=== PATIENT | female | born 1950 | race Caucasian/White ===

== ENCOUNTER 2018-07-28 14:02 | Outpatient (CLI) | payer OTHER | END 2018-07-28 14:03 | disposition home or self-care (01) | LOC: DTY/OP 14:02 | PROVIDERS: ATTEND Specialist | DX: Z01.818 Encounter for other preprocedural examination (principal); E66.01 Morbid (severe) obesity due to excess calories | CPT/HCPCS: 97802 ==

== ENCOUNTER 2018-08-09 13:32 | Day surgery (SDC) | payer MEDICARE ==
[2018-08-08 13:35] VITALS: BMI 57.8
--- NOTE | 2018-08-09 20:33 | OP ---
DATE OF PROCEDURE: 08/09/2018 PROCEDURE PERFORMED: Esophagogastroduodenoscopy with biopsy. PREOPERATIVE DIAGNOSES: Dyspepsia, epigastric pain, and preoperative evaluation. DESCRIPTION OF PROCEDURE: Informed consent was obtained from the patient. She was sedated with total intravenous anesthesia. The bite block was placed, and the endoscope was advanced easily to the second portion of the duodenum, and retroflexion was performed in the stomach. The esophagus was normal. The GE junction was normal. The stomach had erythematous patchy moderate gastritis in the antrum. Biopsies were obtained to rule out H. pylori. Retroflexed views in the stomach were normal. The duodenum had erosive duodenitis with multiple submillimeter erosions in the first portion of the duodenum. Second portion of the duodenum was unremarkable. Biopsies were obtained from the second portion of the duodenum to rule out celiac disease. IMPRESSION: 1. Erythematous patchy gastritis in the antrum. Biopsies obtained to rule out Helicobacter pylori. 2. Erosive duodenitis. Biopsies obtained to rule out celiac disease. RECOMMENDATIONS: 1. Await histopathology. 2. Follow up in GI clinic. 3. Start omeprazole 20 mg daily for the next month, this can be taken over the counter. Job ID: [id number]
[2018-08-09] MEDS ORDERED: PROPOFOL 200 MG/20 ML VIAL ONE (20:56)
== END 2018-08-09 19:00 | disposition home or self-care (01) ==
LOC: SDC 13:32
PROVIDERS: ATTEND Internal Medicine Gastroenterology
PROC: 0DB98ZX Excision of Duodenum, Via Natural or Artificial Opening Endoscopic, Diagnostic (ICD-10-PCS; principal; 2018-08-09)
PROC: 0DB68ZX Excision of Stomach, Via Natural or Artificial Opening Endoscopic, Diagnostic (ICD-10-PCS; 2018-08-09)
DX: K29.70 Gastritis, unspecified, without bleeding (principal); K29.80 Duodenitis without bleeding; K26.9 Duodenal ulcer, unspecified as acute or chronic, without hemorrhage or perforation; F41.9 Anxiety disorder, unspecified; M19.90 Unspecified osteoarthritis, unspecified site; E78.00 Pure hypercholesterolemia, unspecified; I10 Essential (primary) hypertension; K58.9 Irritable bowel syndrome, unspecified; G47.30 Sleep apnea, unspecified; Z79.899 Other long term (current) drug therapy; Z88.0 Allergy status to penicillin; Z88.1 Allergy status to other antibiotic agents; Z88.2 Allergy status to sulfonamides; Z88.8 Allergy status to other drugs, medicaments and biological substances
CPT/HCPCS: 88305; 88312; J2704

== ENCOUNTER 2018-12-08 00:15 | Outpatient (CLI) | payer MEDICARE ==
[2018-12-08 17:00] LABS: #Lymphocytes 1.2 thou/uL (1.20-3.40); #Monocytes 0.2 thou/uL (0.11-0.59); #Neutrophils 9.9 thou/uL (1.40-6.50); %Basophils 0.1 % (0.0-1.0); %Eosinophils 0.2 % (0.0-10.0); %Lymphocytes 10.7 % (21.0-51.0); %Monocytes 1.8 % (0.0-10.0); %Neutrophils 87.3 % (42.0-75.0); Hemoglobin 13.2 g/dL (12.0-16.0); Mean Corpuscular HGB CONC 32.8 g/dL (32.0-36.0); Mean Corpuscular Volume 85.3 fL (78.0-98.0); Mean Platelet Volume 8.6 fL (7.4-10.4); Platelet Count 347 thou/uL (130-400); RBC Distribution Width 13.2 % (11.5-14.5); Red Blood Cell (RBC) Count 4.72 mill/uL (4.20-5.40); White Blood Cell (WBC) Count 11.4 thou/uL (4.8-10.8)
[2018-12-08 17:15] LABS: Hemoglobin A1c 4.9 % (4.0-6.0)
[2018-12-08 17:23] LABS: ALT (SGPT) 15 U/L (8-55); AST (SGOT) 18 U/L (5-34); Albumin 4.1 g/dL (3.4-4.8); Alkaline Phosphatase 68 U/L (40-150); Anion Gap 13 mmol/L (10-20); BUN (Urea Nitrogen) 24 mg/dL (9.8-20.1); Bilirubin, Total 0.3 mg/dL (0.2-1.2); Calc. Creatinine Clearance 0 mL/min (70-130); Calcium 9.6 mg/dL (7.8-10.44); Carbon Dioxide 26 mmol/L (23-31); Chloride 105 mmol/L (98-107); Estimated GFR-MDRD 64; Globulin 3.7 g/dL (2.4-3.5); Glucose 118 mg/dL (80-115); Potassium 4.1 mmol/L (3.5-5.1); Protein, Total 7.8 g/dL (6.0-8.3); Sodium 140 mmol/L (136-145)
== END 2018-12-08 00:16 | disposition home or self-care (01) ==
LOC: LABBT 00:15
PROVIDERS: ATTEND Specialist
DX: Z01.812 Encounter for preprocedural laboratory examination (principal); E66.01 Morbid (severe) obesity due to excess calories; K21.9 Gastro-esophageal reflux disease without esophagitis; E78.5 Hyperlipidemia, unspecified; Z68.43 Body mass index [BMI] 50.0-59.9, adult
CPT/HCPCS: 80053; 83036; 85025

== ENCOUNTER 2018-12-08 16:00 | Inpatient (IN) | payer MEDICARE ==
--- NOTE | 2018-12-08 14:41 | HP ---
HISTORY OF PRESENT ILLNESS: Dawn Doshi is a 68-year-old female patient, who I initially saw in June 2018. She was interested in a gastric bypass. She had comorbidities of morbid obesity, hypertension, GERD, dyslipidemia. She reports her GERD occurs occasionally only when eating heavy meals late at night, but it does not bother her daily. She takes PPIs intermittently. When I saw her in June, she was 302 pounds, 5 feet tall, BMI of 59. Today, she is 274 pounds, 53 BMI, with successful losing of more than 25 pounds. She visited dietitian and discussed with her dietary changes related to a gastric sleeve and visited with a psychologist who believes she is an excellent candidate for bariatric surgery. She has had cardiac clearance by Dr. Wise, and her stress test was normal. Today, she has lost 15% of excess body weight, lost 28 pounds, and is now ready to proceed with a laparoscopic sleeve gastrectomy. She initially was considering the gastric bypass, but after further discussion and consideration, she would like to proceed with a laparoscopic sleeve gastrectomy. Comorbidities as listed above includes hypertension. MEDICATIONS: 1. Amlodipine 10 mg a day. 2. Naproxen as needed. 3. CoQ10. 4. Lisinopril 40 mg a day. 5. Sertraline 100 mg a day. 6. Multivitamins 500 mg a day. 7. Furosemide 40 mg a day. SOCIAL HISTORY: Tobacco, none. Alcohol, none. She quit smoking in 1969. PAST SURGICAL HISTORY: Cholecystectomy, anal fissure; hammertoe surgery, carpal tunnel release; right total hip replacement in September 2014; bilateral carpal tunnels in 1989; bunion/hammertoe surgery in the past; urethral sphincterotomy, in . FAMILY HISTORY: Noncontributory except for mother had heart disease and hypertension. PAST MEDICAL HISTORY: , bladder prolapse, mixed incontinence, asthma, hypertension, intermittent minimal GERD, history of UTIs, history of lumbar radiculopathy and elevated cholesterol. The patient is followed by Dr. Munoz. REVIEW OF SYSTEMS: Ten-point noncontributory otherwise. PHYSICAL EXAMINATION: VITAL SIGNS: Height 5 feet, 274 pounds, 53 BMI. (Initially, when she presented in June 2018, she was 302 pounds, 59 BMI). Blood pressure 130/56, heart rate 74, temperature 98.4 degrees. HEAD, EYES, EARS, NOSE, THROAT: Unremarkable. LUNGS: Clear to auscultation. CARDIAC: Rhythm without murmur or gallop. ABDOMEN: Soft and nontender, obese. EXTREMITIES: Unremarkable. No ankle edema. No lymphadenopathy in the neck, axilla, or groin. NEUROLOGIC: Intact. No focal deficit. ASSESSMENT AND PLAN: Morbid obesity with preoperative weight loss of 28 pounds, 15% excess body weight, following preoperative diet, has been cleared by psychologist and lens cleaner, and we will proceed with laparoscopic sleeve gastrectomy. She understands the risks of infection, bleeding, visceral injury, and then commits to lifelong followup and compliance with postoperative vitamins and protein supplements and exercise to improve her results. Job ID: [id number]
--- NOTE | 2018-12-09 07:35 | HP ---
HISTORY OF PRESENT ILLNESS: Dawn Doshi is a 68-year-old female, initially seen in June 2018. She desires bariatric surgery. She initially is interested in sleeve gastric bypass consideration, she desires a sleeve gastrectomy. She has a long history of obesity and tried numerous diets without significant results. Weight on initial presentation 302 pounds, BMI 59; currently 271 pounds, BMI 52. The patient has met with a psychologist, had a cardiac workup cleared from a cardiac standpoint for surgery. Plan is for laparoscopic sleeve gastrectomy. MEDICATIONS: 1. Amlodipine 10 mg a day. 2. Naproxen daily. 3. Lisinopril 40 mg at bedtime. 4. Sertraline daily. 5. Fluticasone spray as directed. 6. Multivitamins a day. 7. Furosemide 40 mg a day. PAST MEDICAL HISTORY: DJD, bladder prolapse, mixed incontinence, asthma, hypertension, minimal GERD, history of renal cyst. History UTI, lumbar radiculopathy, obesity, high cholesterol, bad knees, ambulating with a walker. PAST SURGICAL HISTORY: Laparoscopic cholecystectomy, sphincterotomy for anal fissure, hammertoe surgery, toenail surgery, carpal tunnel release, incision and drainage of right hip in 2014, bilateral carpal tunnel in 1989, bunion/hammertoe surgery in the past. SOCIAL HISTORY: Tobacco, none since 1970, half a pack a day prior to cessation. Alcohol, none. ASSESSMENT AND PLAN: Morbid obesity, presenting with 302 pounds, 59 BMI, now 271 pounds, 52 BMI, has cardiac clearance with Dr. Wise, seen her psychologist, met with our dietitian, and we will proceed laparoscopic sleeve gastrectomy. She understands risks and benefits and consents. She has comorbidities of hypertension, arthritis, arthralgias. Job ID: [id number]
[2018-12-14] MEDS ORDERED: cefOXitin 2 GM VIAL ONE (06:17)
[2018-12-14] MEDS ORDERED: Heparin 5,000 UNITS/ML VIAL ONE (06:17)
[2018-12-14] MEDS ORDERED: Sodium Chloride 0.9% 100 ML ONE (06:18)
[2018-12-14] MEDS ORDERED: Ketorolac Tromethamine 30 MG/ML VIAL ONE (06:18)
[2018-12-14] MEDS ORDERED: Scopolamine 1.5 mg/72 hour Patch ONE (06:18)
[2018-12-14] MEDS ORDERED: Bupivacaine/Epinephrine 0.25% 30 ML VIAL ONE (06:36)
[2018-12-14] MEDS ORDERED: Fentanyl 100 MCG/2 ML VIAL ONE ×2 (07:04→09:25)
[2018-12-14] MEDS ORDERED: Dexmedetomidine 200 MCG/2 ML VIAL ONE (07:05)
[2018-12-14] MEDS ORDERED: Ondansetron PF 4 MG/2 ML Vial IVP PRN (07:46)
[2018-12-14] MEDS ORDERED: Hydrocodone-Acetamin 15 ML UDCUP PO PRN (07:46)
[2018-12-14] MEDS ORDERED: diphenhydrAMINE 50 MG/ML VIAL IVP PRN (07:46)
[2018-12-14] MEDS ORDERED: Dextrose 5% in Water 1,000 ML IV PRN (07:46)
[2018-12-14] MEDS ORDERED: Dextrose 50% Abboject 50 ML SYRINGE SLOW IVP PRN (07:46)
[2018-12-14] MEDS ORDERED: hydrALAZINE 20 MG/ML VIAL SLOW IVP PRN (07:46)
[2018-12-14] MEDS ORDERED: Morphine 4 MG/ML VIAL SLOW IVP PRN (07:46)
[2018-12-14] MEDS ORDERED: traMADol HCl 50 MG TAB PO PRN ×4 (07:51→10:16)
[2018-12-14] MEDS ORDERED: Nystatin Cream 15 GM TUBE TOP PRN (08:00)
[2018-12-14] MEDS ORDERED: SUGAMMADEX SODIUM 200 MG/2 ML VIAL ONE (09:07)
[2018-12-14] MEDS ORDERED: Promethazine HCl 25 MG/ML VIAL ONE ×2 (09:16→12:32)
[2018-12-14] MEDS ORDERED: Ondansetron HCl/PF 4 MG/2 ML Vial IVP PRN (09:43)
[2018-12-14] MEDS ORDERED: Promethazine HCl 25 MG/ML VIAL SLOW IVP PRN (09:43)
[2018-12-14] MEDS ORDERED: Promethazine HCl 25 MG/ML VIAL IM PRN (09:43)
[2018-12-14] MEDS ORDERED: Morphine Sulfate 2 MG/ML SYRINGE SLOW IVP PRN (09:43)
[2018-12-14] MEDS ORDERED: Morphine 4 MG/ML VIAL ONE (09:55)
[2018-12-14] MEDS ORDERED: Morphine 2 MG/ML SYRINGE SLOW IVP PRN (10:02)
[2018-12-14] MEDS ORDERED: Fluticasone Propionate Nasal Spray 16 gm Bottle NASAL PRN (10:15)
[2018-12-14] MEDS ORDERED: Morphine 2 MG/ML SYRINGE ONE ×2 (10:26→10:56)
[2018-12-14] MEDS: Lactated Ringer's 1,000 ML IV SCH ×2 (12:54→18:22)
[2018-12-14] MEDS: Amlodipine 10 MG TAB PO SCH (12:54)
[2018-12-14] MEDS: Acetaminophen 1,000 MG in Premix Bag 1 BAG IVPB SCH ×3 (12:54→20:03)
[2018-12-14] MEDS: Furosemide 40 MG TAB PO SCH (12:55)
--- NOTE | 2018-12-14 13:23 | OP ---
DATE OF PROCEDURE: 12/14/2018 PREOPERATIVE DIAGNOSES: Morbid obesity, presenting with 302 pounds, 59 BMI, losing 271 pounds, 52 BMI preoperatively with comorbidities of hypertension, degenerative joint disease, having cardiac clearance preoperatively. POSTOPERATIVE DIAGNOSES: Morbid obesity, presenting with 302 pounds, 59 BMI, losing 271 pounds, 52 BMI preoperatively with comorbidities of hypertension, degenerative joint disease, having cardiac clearance preoperatively. PROCEDURE PERFORMED: Laparoscopic sleeve gastrectomy over a 36-Turkish bougie, staple line within 4 cm of the pylorus, completion of EGD, no staple line reinforcement used. ANESTHESIA: General anesthesia, local of 0.25% Marcaine with epinephrine 60 mL. ESTIMATED BLOOD LOSS: 25 mL. DESCRIPTION OF PROCEDURE: The patient was taken to the operating room, where under general anesthesia in the supine position, abdomen was prepared with ChloraPrep and draped in routine fashion. Local anesthetic was infiltrated into the skin and subcutaneous tissue about each port site. Supraumbilical midline incision was made and pneumoperitoneum to 15 mmHg was obtained with a Veress needle, replacing with a 5 port, video laparoscope inserted. Bilateral far lateral incision was made and 5 port was placed. Bilateral midclavicular upper abdominal incision was made and 15 port was placed on the left and 12 port on the right, and subxiphoid incision was made. A Karen liver retractor was inserted reflecting the left lobe of the liver. The liver was malleable, slightly fatty, but easily manipulated. Laparoscopic sleeve gastrectomy was undertaken by initially dividing the gastrocolic ligament adjacent to the greater curvature with the ligature, double burning along the greater curvature up toward the angle of His, dissecting it free, noting absence of hiatal hernia. After this was adequately dissected, dissection was carried out distally within 3 to 4 cm of the pylorus. A 36-Turkish bougie placed under laparoscopic visualization, placed orally by Anesthesia. Once it was in proper position toward the pylorus, initial fire of green load stapler was performed taking care not to overly tighten the staple line against the bougie and initial two fires. The second fire utilized gold load and then subsequent blue loads. Care was taken to avoid over tightening the sleeve gastrectomy near the incisura. Serial fires performed, completing the sleeve gastrectomy, moving the stomach from the 15 mm port placed in a [id number] suture of 0 Vicryl, GraNee needle, transabdominal fixation and closure of abdominal wall. The staple line was inspected and clips placed as necessary as the bougie removed. I then presented to the head of the table and performed the upper endoscopy, noting normal esophagus, sleeve gastrectomy visualizing the pylorus, passing the scope easily without evidence of leak visualized laparoscopically. Scope gradually withdrawn, decompressing the sleeve gastrectomy. Good hemostasis noted as I returned to the operative field with new gown and gloves and pneumoperitoneum reduced. Good hemostasis had been noted. Clips applied to the staple line were needed for hemostasis. Pneumoperitoneum evacuated. All skin incisions closed with interrupted subdermal 4-0 Monocryl and Dermaglue applied. The patient tolerated the procedure well without complications. Job ID: [id number]
[2018-12-14] MEDS: Ketorolac Tromethamine 30 MG/ML VIAL IVP SCH ×3 (13:51→23:07)
[2018-12-14] MEDS: Pantoprazole 40 MG VIAL IVP SCH (13:57)
[2018-12-14] MEDS ORDERED: PROPOFOL 200 MG/20 ML VIAL ONE (15:07)
[2018-12-14] MEDS ORDERED: Rocuronium Bromide 10 MG/ML (10ML VIAL) ONE (15:07)
[2018-12-14] MEDS ORDERED: Glycopyrrolate 0.2 MG/ML 5 ML SYRINGE ONE ×2 (15:07)
[2018-12-14] MEDS ORDERED: PHENYLEPHRINE-NS 100 MCG/ML 10 ML SYRINGE ONE (15:07)
[2018-12-14] MEDS ORDERED: Ondansetron PF 4 MG/2 ML Vial ONE (15:07)
[2018-12-14] MEDS ORDERED: Lidocaine 1% PF 5 ML VIAL ONE (15:07)
[2018-12-14] MEDS ORDERED: Dexamethasone 20 MG/5 ML VIAL ONE (15:07)
[2018-12-14] MEDS ORDERED: ePHEDrine 50 MG/ML VIAL ONE (15:07)
[2018-12-14] MEDS ORDERED: Metoclopramide HCl 10 MG/2 ML VIAL ONE (15:07)
[2018-12-14 16:37] VITALS: BMI 53.1
[2018-12-14] MEDS ORDERED: Enoxaparin Sodium 40 MG/0.4 ML SYRINGE SC SCH (21:00)
[2018-12-15] MEDS: Lactated Ringer's 1,000 ML IV SCH ×2 (00:09→09:07)
[2018-12-15] MEDS: Acetaminophen 1,000 MG in Premix Bag 1 BAG IVPB SCH (01:18)
[2018-12-15 04:41] LABS: #Lymphocytes 1.5 thou/uL (1.20-3.40); #Monocytes 0.6 thou/uL (0.11-0.59); #Neutrophils 9.1 thou/uL (1.40-6.50); %Basophils 0.1 % (0.0-1.0); %Eosinophils 0.1 % (0.0-10.0); %Lymphocytes 13.2 % (21.0-51.0); %Monocytes 5.7 % (0.0-10.0); Hemoglobin 11.8 g/dL (12.0-16.0); Mean Corpuscular HGB CONC 32.5 g/dL (32.0-36.0); Mean Corpuscular Hemoglobin 28.3 pg (27.0-31.0); Mean Corpuscular Volume 87.3 fL (78.0-98.0); Mean Platelet Volume 8.2 fL (7.4-10.4); Platelet Count 297 thou/uL (130-400); RBC Distribution Width 13.4 % (11.5-14.5); Red Blood Cell (RBC) Count 4.15 mill/uL (4.20-5.40); White Blood Cell (WBC) Count 11.3 thou/uL (4.8-10.8)
[2018-12-15 04:58] LABS: Anion Gap 13 mmol/L (10-20); BUN (Urea Nitrogen) 7 mg/dL (9.8-20.1); Calc. Creatinine Clearance 132 mL/min (70-130); Calcium 9.2 mg/dL (7.8-10.44); Carbon Dioxide 26 mmol/L (23-31); Chloride 105 mmol/L (98-107); Estimated GFR-MDRD 74; Glucose 111 mg/dL (80-115); Potassium 4.4 mmol/L (3.5-5.1); Sodium 140 mmol/L (136-145)
[2018-12-15] MEDS: Ketorolac Tromethamine 30 MG/ML VIAL IVP SCH ×2 (05:52→13:11)
[2018-12-15] MEDS ORDERED: Acetaminophen 500 MG TAB PO PRN (07:51)
[2018-12-15] MEDS ORDERED: Hydrocodone-Acetamin 15 ML UDCUP PO PRN (08:00)
[2018-12-15] MEDS: Furosemide 40 MG TAB PO SCH (08:44)
[2018-12-15] MEDS: Amlodipine 10 MG TAB PO SCH (08:45)
[2018-12-15] MEDS: Pantoprazole 40 MG VIAL IVP SCH (08:49)
[2018-12-15 11:56] VITALS: TEMP 98.8
--- NOTE | 2018-12-15 13:52 | PRG ---
DATE OF SERVICE: 12/15/2018 SUBJECTIVE: Dawn Doshi is doing well today. She is status post laparoscopic sleeve gastrectomy yesterday. OBJECTIVE: VITAL SIGNS: 98.8 degrees, 73, and 122/62. GENERAL: She has not required any pain medication. She is tolerating her diet. LUNGS: Clear to auscultation. CARDIAC: Regular rate and rhythm without murmur or gallop. ABDOMEN: Soft and nontender. Surgical wounds look good. Good bowel sounds. LABORATORY DATA: This morning, her hemoglobin is 11.8. Basic metabolic profile is normal. She is ambulating the hallway. She has saline lock last night after tolerating liquids postop same day. ASSESSMENT AND PLAN: Doing well after sleeve gastrectomy. Bariatric diet progression as instructed. Discharge home today. Follow up in my office per appointment in 1 to 2 weeks. Job ID: [id number]
[2018-12-15 15:28] VITALS: BP 148/80
[2018-12-15] MEDS ORDERED: Lisinopril 20 MG TAB PO SCH (21:00)
--- NOTE | 2018-12-16 01:13 | DIS ---
DATE OF ADMISSION: 12/14/2018 DATE OF DISCHARGE: 12/15/2018 DISCHARGE DIAGNOSIS: Morbid obesity, 4 feet 11 inches, 271 pounds. On initial presentation, 302 pounds, BMI 59. Preoperative visit, 271 pounds, 52 body mass index with intentional weight loss efforts, seen her psychologist, evaluated her, she is an appropriate candidate. She underwent cardiac evaluation, which was unremarkable and now presents for laparoscopic sleeve gastrectomy. She has comorbidities of degenerative joint disease, hypertension, depression. PREOPERATIVE MEDICATIONS: 1. Amlodipine 10 a day. 2. Naproxen as needed. 3. Lisinopril 40 mg at bedtime. 4. Sertraline daily. 5. Furosemide 40 mg a day. PAST MEDICAL HISTORY: Bladder prolapse; DJD; mixed incontinence; asthma; hypertension; occasional GERD, not significant; history of UTIs; lumbar radiculopathy; ambulatory with a walker. The patient had a prior cholecystectomy, has had a prior sphincterotomy for anal fissure and a prior right hip replacement in 2014. HOSPITAL COURSE: The patient initially presented to me, interested in gastric bypass, but after further discussion, desired a gastric sleeve. She is admitted after preoperative assessment for laparoscopic sleeve gastrectomy. Postoperatively convalescing and tolerating her bariatric liquid diet, not requesting any pain medication. She was given Ofirmev IV and Toradol p.r.n. and did not require any other analgesics. Did not require a BUSINESS INFO CONSULTANT. She is discharged home at this time to resume her home medications and in addition, take Tylenol as needed for pain 1000 mg p.o. q.i.d. as needed and Ultram. Follow up in 1 to 2 weeks. Diet and activity as tolerated. No lifting restrictions. Diet; bariatric clears, advance as instructed. Job ID: [id number]
== END 2018-12-15 15:40 | disposition home or self-care (01) | DRG 621 ==
LOC: SURG A 12-14 05:54 → SURG B 12-14 12:22 → EDSTATUS 12-14 16:00
PROVIDERS: ADMIT Specialist; ATTEND Specialist
PROC: 0DB64Z3 Excision of Stomach, Percutaneous Endoscopic Approach, Vertical (ICD-10-PCS; principal; 2018-12-14)
DX: E66.01 Morbid (severe) obesity due to excess calories (principal); I10 Essential (primary) hypertension; K21.9 Gastro-esophageal reflux disease without esophagitis; Z68.43 Body mass index [BMI] 50.0-59.9, adult; J45.909 Unspecified asthma, uncomplicated; E78.00 Pure hypercholesterolemia, unspecified; M19.90 Unspecified osteoarthritis, unspecified site; M54.10 Radiculopathy, site unspecified; Z87.891 Personal history of nicotine dependence; Z79.899 Other long term (current) drug therapy; Z87.440 Personal history of urinary (tract) infections; Z90.49 Acquired absence of other specified parts of digestive tract; Z88.0 Allergy status to penicillin; Z88.2 Allergy status to sulfonamides; Z88.1 Allergy status to other antibiotic agents
CPT/HCPCS: 36415; 80048; 85025; 88307; 88312; C9113; J0131; J0694; J1100; J1644; J1650; J1885; J2001; J2270; J2405; J2550; J2704; J2765; J3010; J3490

== ENCOUNTER 2020-08-04 03:43 | Inpatient (IN) | payer MEDICARE, OTHER ==
[2020-08-04] MEDS ORDERED: Sodium Chloride 0.9% 1,000 ML IV SCH ×3 (04:30→11:45)
--- NOTE | 2020-08-04 05:05 | PDOC.BPN ---
- Brief Progress Note [id number] dictated
--- NOTE | 2020-08-04 05:43 | HP ---
CHIEF COMPLAINT: Abdominal pain, nausea and vomiting. HISTORY OF PRESENT ILLNESS: Ms. Doshi is a 70-year-old female with past medical history of hypertension, chronic back pain, osteoarthritis, hyperlipidemia, among others, is being transferred from [facility] after she presented there earlier with abdominal pain associated with persistent nausea and vomiting. The patient has been complaining of left flank pain. She had constant vomiting since 04:00 p.m. No diarrhea. She also reports increased frequency of urination and mild dysuria. Denies cough, shortness of breath, or chest pain. Workup in the emergency room including imaging studies, CT chest, abdomen, and pelvis, the patient was found to have 6 mm proximal ureter stone at the ureteropelvic junction causing hydronephrosis and quite a bit of stranding around the kidney. The patient had a fever of 103. Urinalysis is unremarkable except for RBCs. Septic workup done in the ED. Started on IV antibiotics. Requested to transfer the patient to our medical facility for further management. PAST MEDICAL HISTORY: As mentioned above in history of present illness. PAST SURGICAL HISTORY: Reviewed and not pertinent. SOCIAL HISTORY: Patient has no smoking history. Drinks socially. FAMILY HISTORY: Reviewed and noncontributory. ALLERGIES: BUSPAR, CIPRO, DOXYCYCLINE, PENICILLINS, PREGABALIN, SULFA. HOME MEDICATIONS: See home medication reconciliation form for updated medications. REVIEW OF SYSTEMS: Review of 14 systems negative except what is mentioned in history of present illness. PHYSICAL EXAMINATION: GENERAL: The patient is awake, alert, in moderate distress. VITAL SIGNS: Blood pressure 130/80, respiratory rate is 20, heart rate is 118, temperature was as high as 103.8, oxygen saturation is 96%. HEAD AND NECK: Normocephalic, atraumatic. Neck is supple. No JVD. CHEST: Fair bilateral air entry. HEART: S1, S2. Regular. Tachycardic. ABDOMEN: Soft with flank tenderness. Bowel sounds present. NEUROLOGIC: Awake, alert, moving extremities. PSYCH: Unable to assess. EXTREMITIES: No clubbing or cyanosis. LABORATORY DATA: WBC 17.2, hemoglobin 13.4, platelets 392. Sodium 140, potassium 3.7, glucose 140, BUN is 13, creatinine 0.77. IMAGING STUDIES: As mentioned above in history of present illness. ASSESSMENT: 1. Sepsis. 2. Left ureterolithiasis with left hydronephrosis. 3. Hypertension. 4. Hyperlipidemia. 5. Chronic back pain. PLAN: 1. Admit. 2. Septic workup was done in the ED. 3. IV antibiotics. 4. IV fluids. 5. Urology is being consulted by ED physician for evaluation and further management. 6. Reconcile home medications. 7. DVT prophylaxis as appropriate. 8. Expected length of stay, 2 midnights or more. Job ID: [id number]
[2020-08-04 05:56] LABS: SARS-CoV-2 NAA Rapid Test Not Detected (NotDetected)
[2020-08-04 06:53] VITALS: BMI 37.0
[2020-08-04] MEDS: Famotidine/PF 20 mg/2ml Vial SLOW IVP SCH ×2 (08:54→21:01)
[2020-08-04] MEDS ORDERED: Vancomycin 1 GM in Premix Bag 1 BAG IVPB SCH (09:00)
[2020-08-04 10:05] LABS: Hemoglobin 11.4 g/dL (12.0-16.0); Mean Corpuscular HGB CONC 33.2 g/dL (32.0-36.0); Mean Corpuscular Hemoglobin 29.3 pg (27.0-31.0); Mean Corpuscular Volume 88.2 fL (78.0-98.0); Mean Platelet Volume 8.1 fL (7.4-10.4); Platelet Count 241 thou/uL (130-400); RBC Distribution Width 12.4 % (11.5-14.5); Red Blood Cell (RBC) Count 3.88 mill/uL (4.20-5.40); White Blood Cell (WBC) Count 19.9 thou/uL (4.8-10.8)
[2020-08-04 10:13] LABS: Anion Gap 15 mmol/L (10-20); BUN (Urea Nitrogen) 15 mg/dL (9.8-20.1); Calc. Creatinine Clearance 63 mL/min (70-130); Calcium 7.4 mg/dL (7.8-10.44); Carbon Dioxide 20 mmol/L (23-31); Chloride 107 mmol/L (98-107); Glucose 155 mg/dL (83-110); Sodium 139 mmol/L (136-145)
[2020-08-04 10:22] LABS: Band 23 % (5-11); Lymphocytes 1 % (21-51); MDiff Complete? YES; Metamyelocyte 2 % (0-0); Monocytes 2 % (0-10); Neutrophil 72 % (42-75); Platelet Morphology Comment Appears Adequate
[2020-08-04 10:23] LABS: Potassium 2.9 mmol/L (3.5-5.1)
[2020-08-04] MEDS: Vancomycin HCl 1.25 GM in Sodium Chloride 0.9% 250 ML 250 ML IVPB SCH (10:42)
[2020-08-04] MEDS: Sodium Chloride 0.9% 1,000 ML IV SCH ×3 (10:47→22:27)
--- NOTE | 2020-08-04 10:55 | RAD ---
PORTABLE CHEST 1 VIEW: Date: 08/04/2020 Time: 0946 hours HISTORY: Hypoxia. FINDINGS: The heart size is borderline. The lungs are expanded without lobar consolidation, pneumothoraces, fra nk pulmonary edema, or pleural effusions. There are degenerative changes in the acromioclavicular zayra nts. IMPRESSION: No acute process. POS: OFF
[2020-08-04] MEDS ORDERED: PROPOFOL 200 MG/20 ML VIAL ONE (11:37)
[2020-08-04] MEDS ORDERED: Ondansetron PF 4 MG/2 ML Vial ONE (11:37)
[2020-08-04] MEDS ORDERED: Lidocaine 1% PF 5 ML VIAL ONE (11:37)
[2020-08-04] MEDS ORDERED: PHENYLEPHRINE-NS 100 MCG/ML 10 ML SYRINGE ONE (11:37)
[2020-08-04] MEDS ORDERED: Succinylcholine 200 MG/10 ml SYRINGE FS ONE (11:37)
[2020-08-04] MEDS ORDERED: diphenhydrAMINE 50 MG/ML VIAL ONE (11:37)
[2020-08-04] MEDS ORDERED: ePHEDrine 50 MG/ML VIAL ONE (11:37)
[2020-08-04] MEDS: Potassium Chloride 20 MEQ TAB PO SCH ×3 (12:13→21:03)
[2020-08-04] MEDS ORDERED: Cefepime 2 GM in Sodium Chloride 0.9% 100 ML IVPB SCH (13:00)
[2020-08-04] MEDS: MEROPENEM 1 GM/50 ML 1 GM in Premix Bag 1 BAG IVPB SCH ×2 (13:46→22:25)
--- NOTE | 2020-08-04 14:27 | PDOC.BPN ---
- Brief Progress Note Encounter Date: 08/04/20 The patient denies any significant pain today. She appears to be heading towards worsening sepsis. Her blood pressure has been trending down. White count is 19,000. I have changed her antibiotics to vancomycin and meropenem. We will administer a bolus of NS. The patient's BNP is elevated, however, her chest x-ray is clear. We will monitor her response to the current management. Transfer to [facility].
[2020-08-04] MEDS ORDERED: Iothalamate Meglumine 60% 50 ML VIAL FS ONE (17:52)
[2020-08-04] MEDS ORDERED: Fentanyl 100 MCG/2 ML VIAL ONE ×2 (17:58→19:25)
--- NOTE | 2020-08-04 18:09 | CON ---
DATE OF CONSULTATION: 08/04/2020 CHIEF COMPLAINT: Left-sided flank pain with associated nausea and vomiting. HISTORY OF PRESENT ILLNESS: Ms. Dawn Doshi is a very pleasant 70-year-old white female whom I am acquainted with for past history of recurrent urinary tract infection. The patient presents now with a slightly different problem. She has recently undergone bariatric surgery and presents to the hospital complaining of nausea and vomiting. The patient underwent CT scanning of the abdomen and pelvis on 08/03/2020 and had finding of a left ureteropelvic junction calculus. The patient has symptomatic left-sided flank pain which radiates to the left anterior abdomen. A CT shows proximal hydronephrosis and stranding about the kidney as well as massive dilation of the collecting system. Based on the patient's presentation with marked elevated white count, she is being observed in the intensive care unit for resuscitation. [place] [id number]. The patient, however, on antibiotic therapy is currently afebrile. ALLERGIES: TO SULFA, BUSPIRONE, AND PENICILLINS. CURRENT OUTPATIENT MEDICATION LIST: Includes Pepcid on a p.r.n. basis. PAST MEDICAL HISTORY: 1. Morbid obesity. 2. Recurrent urinary tract infection. 3. Hypertension, currently on lisinopril. REVIEW OF SYSTEMS: HEAD, EARS, EYES, NOSE, AND THROAT: Negative. GENERAL AND METABOLIC: The patient does not report fever at home. She does report severe flank pain symptoms. CARDIAC: Negative except for hypertension. PULMONARY: No complaints of cough for cold. No coronavirus or flu symptoms. GASTROINTESTINAL: Nausea and vomiting as well as abdominal pain confined to the left side. GENITOURINARY: No complaints of recent urinary tract infection. Positive for left-sided flank pain symptoms. MUSCULOSKELETAL: No current complaints. PHYSICAL EXAMINATION: VITAL SIGNS: Temperature is 98.6, pulse is 83, blood pressure is 98/52. HEAD, EYES, EARS, NOSE, AND THROAT: Extraocular movements are intact. Sclerae anicteric. Oropharynx is clear. NECK: Supple. LUNGS: Clear to auscultation bilaterally. CARDIAC: Regular rate and rhythm. ABDOMEN: Soft and nontender anteriorly. The patient reports left-sided flank pain which is present on percussion. Abdomen is soft, obese, and nontender. SKIN: There are multiple skin lesions associated with patient's recent history of shingles on a right-sided T8 level distribution dermatomal pattern. There are laparoscopy scars associated with the patient's recent gastric sleeve operation which was performed about one year ago. PELVIC: Deferred to the operative suite. RADIOLOGIC STUDIES: CT scan of the abdomen and pelvis was performed on 08/03/2020, and the patient has described a left-sided UPJ stone measuring 6 mm in diameter. There is proximal hydronephrosis and stranding about the patient's left kidney. H[place]ologic [place] [address]. There is left shift. The patient has 72% neutrophils. There are 23 bands, however. The serum chemistry showed the patient's potassium low at 2.9. The sodium is 139, blood urea nitrogen is 15 with a creatinine of 1.09. BNP is elevated at 1037. ASSESSMENT AND PLAN: Left-sided kidney stone with elevated white count and bandemia. The patient probably will benefit from cystoscopy and stent placement due to the patient's elevated BNP. Consideration of avoidance of excessive hydration is reasonable in this patient and postoperative management should consider the patient's cardiac function. At the present time, cystoscopy and stent placement appears to be an emergent issue so that fluid management may be minimized. Over 70 minutes of initial evaluation, consultation, assessment time and coordination of care time was spent in evaluation of this patient today. Job ID: [id number]
[2020-08-04] MEDS ORDERED: Famotidine/PF 20 mg/2ml Vial ONE (18:10)
[2020-08-04] MEDS ORDERED: Bicitra 30 ML UDCUP ONE (18:10)
--- NOTE | 2020-08-04 19:01 | RAD ---
Retrograde ureterogram intraoperative fluoroscopy HISTORY: Ureteral stone. FINDINGS: Intraoperative fluoroscopy was provided for retrograde study as performed by Dr. Ryan. Spo t fluoroscopic images show contrast opacification of a mildly dilated left renal collecting system. Small filling defects within the upper ureter correlate with stone on recent CT.
[2020-08-04] MEDS ORDERED: Promethazine HCl 25 MG/ML VIAL SLOW IVP PRN (19:17)
[2020-08-04] MEDS ORDERED: Ondansetron HCl/PF 4 MG/2 ML Vial IVP PRN (19:17)
[2020-08-04] MEDS ORDERED: Promethazine HCl 25 MG/ML VIAL IM PRN (19:17)
[2020-08-04 20:38] LABS: CKMB 5.1 ng/mL (0-6.6)
[2020-08-04] MEDS: Morphine 2 MG/ML VIAL SLOW IVP PRN (21:01)
[2020-08-04] MEDS: Trospium 20 MG TAB PO SCH (21:03)
--- NOTE | 2020-08-04 21:30 | OP ---
DATE OF PROCEDURE: 08/04/2020 PREOPERATIVE DIAGNOSES: 1. Left renal calculus with obstruction, N20.0. 2. Septic shock with pulse greater than 90, white cells greater than 17,000 and infection source as well as hypotension. POSTOPERATIVE DIAGNOSES: 1. Left renal calculus with obstruction, N20.0. 2. Septic shock with pulse greater than 90, white cells greater than 17,000 and infection source as well as hypotension. PROCEDURES PERFORMED: 1. Cystourethroscopy with left-sided retrograde pyelography, 15390. 2. Cystoscopy with left-sided double-J ureteral stent placement, 99626. ROTARY ENGINE ASSEMBLER SURGEON: None. BRIEF HISTORY AND INDICATION FOR PROCEDURE: Ms. Dawn Doshi is a very pleasant 70-year-old white female with a history of diabetes and obesity, who presented with a markedly elevated white count and abdominal pain symptoms. She underwent CT scan demonstrating a left ureteropelvic junction calculus. She was admitted to the hospital and placed on medical therapy including meropenem and IV fluids. The patient opted to proceed to the operating room for cystoscopy and stent placement after CT scanning demonstrated the presence of a 6 mm left ureteropelvic junction obstructing calculus with proximal hydronephrosis and hydroureter. DESCRIPTION OF PROCEDURE: The patient was appropriately identified in the preoperative holding area. Informed written consent was obtained. The patient's films were reviewed and decided to proceed with stent placement on left side after she gave consent. The patient proceeded to the operating room and underwent induction of general anesthesia using endotracheal means. The patient underwent sterile prep and drape after being repositioned in supine lithotomy position. The patient has underwent cystoscopic evaluation, which demonstrated no efflux from the patient's left ureter while minimal efflux was observed from the right ureter and the bladder. After padilla endoscopic evaluation found no stones, we proceeded with left-sided retrograde pyelography, which demonstrated a potential filling defect lodged at the left UVJ. This was faintly radiopaque and due to the patient's morbid obesity, complete assessment as to whether this was truly a radiopaque object was not clear. The patient did have retained contrast from previous imaging studies and due to this obstruction, confirmation was present without retrograde evaluation. Retrograde evaluation suggest UPJ obstructing calculus. We passed a 0.035 angled Glidewire up to the patient's renal pelvis, bypassing the obstructed area. Subsequently, advanced a 5-Eritrean Pollack catheter and performed aspiration of the patient's collecting system, this was sent for culture. The patient's Glidewire was then replaced into the collecting system. We then passed a 4.5-Eritrean x 28 cm double-J ACMI stent into the patient's collecting system. We obtained good coil in the renal pelvis and in the patient's bladder. The patient's bladder was drained at the close of the procedure. Due to the patient having concurrent diarrhea, we did not utilize a belladonna or opioid suppository at the close of the procedure. She tolerated this procedure well and subsequently, transported to the postoperative recovery area after extubation and did well. The patient has been complaining all day of abdominal pain symptoms, some of which are associated with the stone, but she has other GI symptoms and does have a history of previous gastric sleeve operation. The patient is also suffering from a degree of diarrhea as well. SPECIMENS: Urine from the patient's left renal pelvis for culture. COMPLICATIONS: None evident. IV FLUIDS: All resuscitation fluid, 1 L. BLOOD LOSS: None. Job ID: [id number]
[2020-08-04 23:55] LABS: Troponin I 0.312 ng/mL (< 0.028)
[2020-08-05 04:06] LABS: Anion Gap 15 mmol/L (10-20); BUN (Urea Nitrogen) 19 mg/dL (9.8-20.1); Calc. Creatinine Clearance 74 mL/min (70-130); Calcium 7.5 mg/dL (7.8-10.44); Carbon Dioxide 17 mmol/L (23-31); Chloride 112 mmol/L (98-107); Glucose 105 mg/dL (83-110); Potassium 4.4 mmol/L (3.5-5.1); Sodium 140 mmol/L (136-145)
[2020-08-05 04:11] LABS: Troponin I 0.279 ng/mL (< 0.028)
[2020-08-05 04:28] LABS: Band 27 % (5-11); Hemoglobin 10.7 g/dL (12.0-16.0); Hypochromia SLIGHT = 6-15 cells (100X) (0-5/hpf); Lymphocytes 3 % (21-51); MDiff Complete? YES; Mean Corpuscular HGB CONC 31.7 g/dL (32.0-36.0); Mean Corpuscular Hemoglobin 28.5 pg (27.0-31.0); Mean Corpuscular Volume 89.9 fL (78.0-98.0); Mean Platelet Volume 8.3 fL (7.4-10.4); Metamyelocyte 12 % (0-0); Monocytes 4 % (0-10); Neutrophil 54 % (42-75); Nucleated RBC 1 % (0); Platelet Count 222 thou/uL (130-400); Platelet Morphology Comment Appears Adequate; RBC Distribution Width 12.8 % (11.5-14.5); Red Blood Cell (RBC) Count 3.77 mill/uL (4.20-5.40)
[2020-08-05] MEDS: Sodium Chloride 0.9% 1,000 ML IV SCH ×3 (05:45→20:36)
[2020-08-05] MEDS: MEROPENEM 1 GM/50 ML 1 GM in Premix Bag 1 BAG IVPB SCH ×3 (05:45→22:29)
[2020-08-05] MEDS: Morphine 2 MG/ML VIAL SLOW IVP PRN ×3 (05:50→22:37)
[2020-08-05] MEDS: Ondansetron PF 4 MG/2 ML Vial IVP PRN (05:52)
[2020-08-05] MEDS: Famotidine/PF 20 mg/2ml Vial SLOW IVP SCH ×2 (08:40→20:32)
[2020-08-05] MEDS: Vancomycin HCl 1.25 GM in Sodium Chloride 0.9% 250 ML 250 ML IVPB SCH (08:40)
[2020-08-05] MEDS: Trospium 20 MG TAB PO SCH ×2 (08:40→20:32)
--- NOTE | 2020-08-05 18:56 | PDOC.HOSPP ---
- Subjective Encounter Date: 08/05/20 Subjective: The patient was seen and examined. She is complaining of abdominal and back pain. - Objective Vital Signs & Weight: Vital Signs (12 hours) Temp Pulse Ox 08/05/20 11:26 99.6 F 08/05/20 08:00 99 08/05/20 07:44 99.6 F Weight Weight 190 lb Most Recent Monitor Data Heart Rate from ECG 94 NIBP 132/85 NIBP BP-Mean 100 Respiration from ECG 16 SpO2 93 I&O: 08/04/20 08/05/20 08/06/20 06:59 06:59 06:59 Intake Total 3141 1800 Output Total 700 300 Balance 2441 1500 Result Diagrams: 08/05/20 03:40 08/05/20 03:40 Hospitalist ROS - Medication Medications: Active Medications Generic Name Dose Route Start Last Admin Trade Name Freq PRN Reason Stop Dose Admin Famotidine 20 mg 08/04/20 09:00 08/05/20 08:40 Famotidine/Pf 20 Mg/2ml Vial SLOW IVP 20 mg Q12HR CHRIS Administration Vancomycin HCl 1.25 gm/ Sodium 250 mls @ 166.667 mls/hr 08/04/20 09:00 08/05/20 08:40 Chloride IVPB 250 mls 0900 CHRIS Administration Sodium Chloride 1,000 mls @ 150 mls/hr 08/04/20 09:31 08/05/20 17:14 Normal Saline 0.9% IV Not Given .Q6H40M CHRIS Meropenem 1 gm/ Device 50 mls @ 100 mls/hr 08/04/20 14:00 08/05/20 14:49 IVPB 50 mls Q8HR CHRIS Administration Sodium Chloride 1,000 mls @ 0 mls/hr 08/04/20 11:45 08/04/20 12:15 Normal Saline 0.9% IV 1,000 mls .Q0M CHRIS Administration As Directed Morphine Sulfate 1 mg 08/04/20 04:33 08/05/20 14:49 Morphine 2 Mg/Ml Vial SLOW IVP 1 mg Q4H PRN Administration Severe Pain (7-10) Ondansetron HCl 4 mg 08/04/20 04:27 08/05/20 05:52 Ondansetron Pf 4 Mg/2 Ml Vial IVP 4 mg Q6H PRN Administration Nausea/Vomiting Trospium 20 mg 08/04/20 21:00 08/05/20 08:40 Trospium 20 Mg Tab PO 20 mg BID CHRIS Administration - Exam General Appearance: awake alert ENT: normocephalic atraumatic Neck: supple, no JVD Heart: RRR Respiratory: normal chest expansion, no tachypnea Gastrointestinal: soft Extremities: no cyanosis Neurological: cranial nerve grossly intact, no focal deficits Hosp A/P (1) Sepsis Code(s): A41.9 - SEPSIS, UNSPECIFIED ORGANISM Status: Acute (2) Pyelonephritis Code(s): N12 - TUBULO-INTERSTITIAL NEPHRITIS, NOT SPCF ACUTE OR CHRONIC Status: Acute (3) Bilateral ureteral obstruction Code(s): N13.5 - CROSSING VESSEL AND STRICTURE OF URETER W/O HYDRONEPHROSIS Status: Acute - Plan Status post cystoscopy and stent placement. Continue IV meropenem and vancomycin. Leukocytosis is worsening but we will continue to trend the levels. Continue IV fluids. Monitor her respiratory status. Follow culture results.
[2020-08-06] MEDS: Morphine 2 MG/ML VIAL SLOW IVP PRN ×2 (03:10→09:24)
[2020-08-06 04:16] LABS: Anion Gap 13 mmol/L (10-20); BUN (Urea Nitrogen) 15 mg/dL (9.8-20.1); Calc. Creatinine Clearance 110 mL/min (70-130); Calcium 8.1 mg/dL (7.8-10.44); Carbon Dioxide 19 mmol/L (23-31); Chloride 111 mmol/L (98-107); Glucose 74 mg/dL (83-110); Potassium 4.3 mmol/L (3.5-5.1); Sodium 139 mmol/L (136-145)
[2020-08-06 04:21] LABS: Band 40 % (5-11); Hemoglobin 10.9 g/dL (12.0-16.0); Lymphocytes 3 % (21-51); MDiff Complete? YES; Mean Corpuscular Hemoglobin 28.9 pg (27.0-31.0); Mean Corpuscular Volume 90.4 fL (78.0-98.0); Mean Platelet Volume 9.3 fL (7.4-10.4); Monocytes 5 % (0-10); Neutrophil 52 % (42-75); Platelet Count 188 thou/uL (130-400); Platelet Morphology Comment Appears Adequate; RBC Distribution Width 12.8 % (11.5-14.5); Red Blood Cell (RBC) Count 3.76 mill/uL (4.20-5.40); White Blood Cell (WBC) Count 37.4 thou/uL (4.8-10.8)
[2020-08-06] MEDS: Sodium Chloride 0.9% 1,000 ML IV SCH ×3 (04:36→20:59)
[2020-08-06] MEDS: hydrALAZINE 20 MG/ML VIAL SLOW IVP PRN ×2 (04:37→08:04)
[2020-08-06] MEDS: Acetaminophen 325 MG TAB PO PRN (05:18)
[2020-08-06] MEDS: MEROPENEM 1 GM/50 ML 1 GM in Premix Bag 1 BAG IVPB SCH ×3 (05:46→21:00)
[2020-08-06 08:39] LABS: Vancomycin, Trough 8.9 ug/mL
[2020-08-06] MEDS ORDERED: Vancomycin HCl 750 MG in Sodium Chloride 0.9% 250 ML 250 ML IVPB SCH (09:00)
[2020-08-06] MEDS: Lisinopril 20 MG TAB PO SCH (09:23)
[2020-08-06] MEDS: Amlodipine 10 MG TAB PO SCH (09:23)
[2020-08-06] MEDS: Trospium 20 MG TAB PO SCH ×2 (09:24→20:59)
[2020-08-06] MEDS: Famotidine/PF 20 mg/2ml Vial SLOW IVP SCH ×2 (09:24→20:58)
[2020-08-06] MEDS: Ondansetron PF 4 MG/2 ML Vial IVP PRN (09:27)
[2020-08-06] MEDS: Vancomycin HCl 1.25 GM in Sodium Chloride 0.9% 250 ML 250 ML IVPB SCH (10:38)
[2020-08-06] MEDS ORDERED: Bisacodyl 5 MG TAB PO PRN (11:57)
[2020-08-06] MEDS ORDERED: Polyethylene Glycol 3350 17 GM Packet PO PRN (11:57)
[2020-08-06] MEDS: Morphine 4 MG/ML VIAL SLOW IVP PRN ×2 (15:16→21:04)
--- NOTE | 2020-08-06 17:54 | PDOC.HOSPP ---
- Subjective Encounter Date: 08/06/20 Subjective: The patient is complaining of chills and body aches. - Objective Vital Signs & Weight: Vital Signs (12 hours) Temp Pulse BP Pulse Ox 08/06/20 15:55 98.0 F 08/06/20 11:22 97.6 F 08/06/20 09:23 80 184/117 H 08/06/20 08:04 80 195/116 H 08/06/20 08:00 95 08/06/20 07:37 98.1 F Weight Weight 190 lb Most Recent Monitor Data Heart Rate from ECG 75 NIBP 134/90 NIBP BP-Mean 104 Respiration from ECG 16 SpO2 95 I&O: 08/05/20 08/06/20 08/07/20 06:59 06:59 06:59 Intake Total 3141 3913 Output Total 700 1300 Balance 2441 9483 Result Diagrams: 08/06/20 03:12 08/06/20 03:12 Additional Labs: Accuchecks 08/06/20 05:12 POC Glucose 71 Hospitalist ROS - Medication Medications: Active Medications Generic Name Dose Route Start Last Admin Trade Name Freq PRN Reason Stop Dose Admin Acetaminophen 650 mg 08/06/20 04:03 08/06/20 05:18 Acetaminophen 325 Mg Tab PO 650 mg Q4H PRN Administration Headache/Fever or Pain Amlodipine Besylate 10 mg 08/06/20 09:00 08/06/20 09:23 Amlodipine 10 Mg Tab PO 10 mg DAILY CHRIS Administration Famotidine 20 mg 08/04/20 09:00 08/06/20 09:24 Famotidine/Pf 20 Mg/2ml Vial SLOW IVP 20 mg Q12HR CHRIS Administration Hydralazine HCl 10 mg 08/06/20 04:04 08/06/20 08:04 Hydralazine 20 Mg/Ml Vial SLOW IVP 10 mg Q4H PRN Administration SBP Greater Than 180 Meropenem 1 gm/ Device 50 mls @ 100 mls/hr 08/04/20 14:00 08/06/20 15:23 IVPB 50 mls Q8HR CHRIS Administration Vancomycin HCl 750 mg/ Sodium 250 mls @ 250 mls/hr 08/06/20 09:00 08/06/20 09:25 Chloride IVPB 250 mls Q12HR CHRIS Administration Sodium Chloride 1,000 mls @ 75 mls/hr 08/06/20 11:56 08/06/20 15:17 Normal Saline 0.9% IV 1,000 mls .[id number] CHRIS Administration Lisinopril 20 mg 08/06/20 09:00 08/06/20 09:23 Lisinopril 20 Mg Tab PO 20 mg DAILY CHRIS Administration Morphine Sulfate 3 mg 08/06/20 12:03 08/06/20 15:16 Morphine 4 Mg/Ml Vial SLOW IVP 3 mg Q4H PRN Administration Severe Pain (7-10) Ondansetron HCl 4 mg 08/04/20 04:27 08/06/20 09:27 Ondansetron Pf 4 Mg/2 Ml Vial IVP 4 mg Q6H PRN Administration Nausea/Vomiting Trospium 20 mg 08/04/20 21:00 08/06/20 09:24 Trospium 20 Mg Tab PO 20 mg BID CHRIS Administration - Exam General Appearance: awake alert ENT: normocephalic atraumatic Neck: supple Heart: RRR Respiratory: normal chest expansion, no tachypnea Neurological: cranial nerve grossly intact, no focal deficits Hosp A/P (1) Sepsis Code(s): A41.9 - SEPSIS, UNSPECIFIED ORGANISM Status: Acute (2) Pyelonephritis Code(s): N12 - TUBULO-INTERSTITIAL NEPHRITIS, NOT SPCF ACUTE OR CHRONIC Status: Acute (3) Bilateral ureteral obstruction Code(s): N13.5 - CROSSING VESSEL AND STRICTURE OF URETER W/O HYDRONEPHROSIS Status: Acute - Plan Status post cystoscopy and stent placement. Continue IV meropenem and vancomycin. Leukocytosis is worsening but we will continue to trend the levels. Decrease the rate of the IVF due to her elevated BNP and risk of pulmonary edema. Cx showing early growth of Klebsiella sp. Follow final culture results.
--- NOTE | 2020-08-06 23:40 | CON ---
DATE OF CONSULTATION: 08/06/2020 REASON FOR CONSULTATION: Urosepsis with obstructive pyelonephritis, left side. HISTORY OF PRESENT ILLNESS: A 70-year-old, whom I had seen in 2014. At that time, she had presented with obesity, hypertension, osteoarthritis, and chronic back pain, whom I had seen in October 2014 for a right hip replacement inflammatory process, which I felt was probably superficial. She was treated nonetheless for few weeks with antimicrobial therapy because of some element of uncertainty regarding the extent of the involvement and has not had a problem since and then was in her usual state until this past Wednesday, when she all of a sudden developed rapidly progressive pain in the left flank associated with nausea, vomiting, and that prompted her to come to the emergency room and she had fever and tachycardia and was given IV fluids and broad-spectrum antimicrobial coverage. Had a CT chest, abdomen, and pelvis and that showed hydronephrosis, left side with 6 mm stone in the left UPJ. The right side was normal. The remainder of the exam was not remarkable. The patient had an intervention by Dr. Ryan, which consisted of cystoscopy and insertion of a stent in the left side. Ms. Doshi is in the IMCU now. She is awake and alert. She appears in no distress, still feeling general myalgias. No headaches. No visual symptoms, sore throat, odynophagia, dysphagia, or dry mouth. No dyspnea or chest pain. Little bit of left flank pain but no other parts of abdomen are tender. She has no Lombardi catheter. Voiding in the diaper and she has a peripheral IV access. PAST MEDICAL HISTORY: Includes hypertension, back pain, osteoarthritis, hyperlipidemia. Right hip replacement with postop infection, which was superficial, treated conservatively. Never knew to have nephrolithiasis. History of cholecystectomy. SOCIAL HISTORY: Never smoker. Drinks occasionally. ALLERGIES: BUSPAR, CIPRO, DOXY, PENICILLIN, AND SULFA DRUGS. WHEN I ASKED HER SPECIFICALLY, SHE ONLY RECALLED THE PENICILLIN ALLERGY BUT NONE OF THE OTHER MEDICATIONS, SO THIS HAS NOT BEEN CONFIRMED. CURRENT PHYSICAL EXAMINATION: VITAL SIGNS: She has been afebrile, T-max 99.6 recently, but now she is 98; BP 130/90; heart rate 75; respiratory rate 16; and O2 saturation 95%, room air O2. SKIN: Peripheral IV access. She does not have a Lombardi catheter. LYMPH: No lymphadenopathy. HEENT: Ocular movements conjugate. She is awake, oriented, and follows commands. Mouth is somewhat dry. NECK: Supple. LUNGS: Symmetric. Clear breath sounds. HEART: S1 and S2, regular rate. ABDOMEN: Tender in the left flank, but soft, flat. No organomegaly or ascites. No bladder distention. EXTREMITIES: She moves extremities equally, little bit weak. No edema. Pulses 1+ in dorsalis pedis. Plantar responses are flexor. LABORATORY DATA: White cell count is up from 19,000 to 37,000, hemoglobin is at 10.9, platelets are 188, 40% bands. Creatinine 0.63. Influenza and SARS-CoV-2, not detected. Blood cultures thus far negative two sets from the repeat's samples. The first two sets are positive for Klebsiella pneumoniae with a very broad susceptibility profile. Same organism isolated from urine. IMAGING DATA: We have already discussed repeat chest x-ray from today with no acute process noted. She is currently receiving meropenem and vancomycin. ASSESSMENT: Hypertension; prior right hip replacement infection, superficial; now with acute onset of sepsis with obstructive pyelonephritis, status post stent placement in left kidney. This was due to a stone. The patient's organism has broad susceptibility to various antimicrobials and she is on meropenem right now but will eventually be able to be transitioned to hopefully oral quinolone. The reported history of allergy to Ciprofloxacin is not yet confirmed and we could re-challenge her while in hospital. I would probably switch her to levofloxacin when she gets more stable. Give by the oral route and continue treating it until the stone is removed and stent removed. The time table for that will depend on Dr. Ryan. The challenge with levofloxacin will have to be carried out here in the hospital to make sure that she can tolerate and does not have any issues with it. Job ID: [id number] [facility]
[2020-08-07 04:19] LABS: Anion Gap 11 mmol/L (10-20); BUN (Urea Nitrogen) 11 mg/dL (9.8-20.1); Calc. Creatinine Clearance 113 mL/min (70-130); Calcium 7.9 mg/dL (7.8-10.44); Carbon Dioxide 23 mmol/L (23-31); Chloride 104 mmol/L (98-107); Glucose 80 mg/dL (83-110); Potassium 3.4 mmol/L (3.5-5.1); Sodium 135 mmol/L (136-145)
[2020-08-07 04:22] LABS: Hemoglobin 11.4 g/dL (12.0-16.0); Mean Corpuscular Hemoglobin 28.4 pg (27.0-31.0); Mean Corpuscular Volume 88.8 fL (78.0-98.0); Mean Platelet Volume 8.4 fL (7.4-10.4); Platelet Count 222 thou/uL (130-400); RBC Distribution Width 12.4 % (11.5-14.5); Red Blood Cell (RBC) Count 4.01 mill/uL (4.20-5.40); White Blood Cell (WBC) Count 35.9 thou/uL (4.8-10.8)
[2020-08-07 04:23] LABS: Band 19 % (5-11); Hypochromia SLIGHT = 6-15 cells (100X) (0-5/hpf); Lymphocytes 11 % (21-51); MDiff Complete? YES; Monocytes 1 % (0-10); Neutrophil 69 % (42-75); Platelet Morphology Comment Appears Adequate
[2020-08-07] MEDS: MEROPENEM 1 GM/50 ML 1 GM in Premix Bag 1 BAG IVPB SCH ×2 (05:56→17:12)
[2020-08-07] MEDS: Amlodipine 10 MG TAB PO SCH (09:49)
[2020-08-07] MEDS: Lisinopril 20 MG TAB PO SCH (09:49)
[2020-08-07] MEDS: Trospium 20 MG TAB PO SCH ×2 (09:49→20:16)
[2020-08-07] MEDS: Famotidine/PF 20 mg/2ml Vial SLOW IVP SCH ×2 (09:49→20:16)
[2020-08-07] MEDS: hydrALAZINE 20 MG/ML VIAL SLOW IVP PRN (09:49)
[2020-08-07] MEDS ORDERED: diphenhydrAMINE 50 MG/ML VIAL ONE (10:10)
[2020-08-07] MEDS ORDERED: diphenhydrAMINE 50 MG/ML VIAL IVP SCH (10:15)
[2020-08-07] MEDS ORDERED: hydrALAZINE 25 MG TAB PO SCH (10:30)
[2020-08-07] MEDS ORDERED: diphenhydrAMINE 50 MG/ML VIAL IM SCH (12:00)
[2020-08-07] MEDS: Sodium Chloride 0.9% 1,000 ML IV SCH ×2 (17:12→20:35)
--- NOTE | 2020-08-07 17:13 | PDOC.HOSPP ---
- Subjective Encounter Date: 08/07/20 Subjective: Apparently, the patient suffers from an allergic reaction today. Her lower lip is swollen and a fine reticular rash appeared on her extremities. - Objective Vital Signs & Weight: Vital Signs (12 hours) Temp Pulse BP Pulse Ox 08/07/20 15:24 99.2 F 08/07/20 11:20 98.1 F 08/07/20 10:45 80 184/117 H 08/07/20 09:49 80 184/117 H 08/07/20 08:00 97 08/07/20 07:51 97.8 F Weight Weight 190 lb Most Recent Monitor Data Heart Rate from ECG 101 NIBP 131/72 NIBP BP-Mean 91 Respiration from ECG 24 SpO2 95 I&O: 08/06/20 08/07/20 08/08/20 06:59 06:59 06:59 Intake Total 3913 3795 Output Total 8439 4450 Balance 8666 -594 Result Diagrams: 08/07/20 03:17 08/07/20 03:17 Hospitalist ROS - Medication Medications: Active Medications Generic Name Dose Route Start Last Admin Trade Name Freq PRN Reason Stop Dose Admin Acetaminophen 650 mg 08/06/20 04:03 08/06/20 05:18 Acetaminophen 325 Mg Tab PO 650 mg Q4H PRN Administration Headache/Fever or Pain Amlodipine Besylate 10 mg 08/06/20 09:00 08/07/20 09:49 Amlodipine 10 Mg Tab PO 10 mg DAILY CHRIS Administration Famotidine 20 mg 08/04/20 09:00 08/07/20 09:49 Famotidine/Pf 20 Mg/2ml Vial SLOW IVP 20 mg Q12HR CHRIS Administration Hydralazine HCl 10 mg 08/06/20 04:04 08/07/20 09:49 Hydralazine 20 Mg/Ml Vial SLOW IVP 10 mg Q4H PRN Administration SBP Greater Than 180 Sodium Chloride 1,000 mls @ 75 mls/hr 08/06/20 11:56 08/06/20 20:59 Normal Saline 0.9% IV 1,000 mls .[id number] CHRIS Administration Lisinopril 20 mg 08/06/20 09:00 08/07/20 09:49 Lisinopril 20 Mg Tab PO 20 mg DAILY CHRIS Administration Morphine Sulfate 3 mg 08/06/20 12:03 08/06/20 21:04 Morphine 4 Mg/Ml Vial SLOW IVP 3 mg Q4H PRN Administration Severe Pain (7-10) Ondansetron HCl 4 mg 08/04/20 04:27 08/06/20 09:27 Ondansetron Pf 4 Mg/2 Ml Vial IVP 4 mg Q6H PRN Administration Nausea/Vomiting Trospium 20 mg 08/04/20 21:00 08/07/20 09:49 Trospium 20 Mg Tab PO 20 mg BID CHRIS Administration - Exam General Appearance: awake alert ENT: normocephalic atraumatic Neck: supple Heart: RRR Respiratory: normal chest expansion, no tachypnea Gastrointestinal: soft Neurological: cranial nerve grossly intact Hosp A/P (1) Sepsis Code(s): A41.9 - SEPSIS, UNSPECIFIED ORGANISM Status: Acute (2) Pyelonephritis Code(s): N12 - TUBULO-INTERSTITIAL NEPHRITIS, NOT SPCF ACUTE OR CHRONIC Status: Acute (3) Bilateral ureteral obstruction Code(s): N13.5 - CROSSING VESSEL AND STRICTURE OF URETER W/O HYDRONEPHROSIS Status: Acute (4) Anaphylactic reaction Code(s): T78.2XXA - ANAPHYLACTIC SHOCK, UNSPECIFIED, INITIAL ENCOUNTER Status: Acute - Plan Status post cystoscopy and stent placement. Leukocytosis and bandemia are improving. Patient remains septic. Urine cultures positive for Klebsiella species. Meropenem was discontinued as it seems to be the likely culprit in the patient's allergic reaction. We will monitor her closely in the ICU due to high risk of angioedema. The patient will be started on IV levofloxacin per sensitivity data.
[2020-08-07] MEDS: hydrALAZINE 25 MG TAB PO SCH (20:15)
[2020-08-08] MEDS: Morphine 4 MG/ML VIAL SLOW IVP PRN ×3 (03:55→21:55)
[2020-08-08 04:53] LABS: Anion Gap 15 mmol/L (10-20); BUN (Urea Nitrogen) 8 mg/dL (9.8-20.1); Calc. Creatinine Clearance 108 mL/min (70-130); Calcium 8.2 mg/dL (7.8-10.44); Carbon Dioxide 27 mmol/L (23-31); Chloride 101 mmol/L (98-107); Glucose 95 mg/dL (83-110); Sodium 140 mmol/L (136-145)
[2020-08-08 04:56] LABS: Band 18 % (5-11); Eosinophils 2 % (0-10); Lymphocytes 10 % (21-51); MDiff Complete? YES; Mean Corpuscular HGB CONC 33.1 g/dL (32.0-36.0); Mean Corpuscular Hemoglobin 28.6 pg (27.0-31.0); Mean Corpuscular Volume 86.5 fL (78.0-98.0); Mean Platelet Volume 7.9 fL (7.4-10.4); Metamyelocyte 3 % (0-0); Monocytes 8 % (0-10); Myelocyte 1 % (0-0); Neutrophil 58 % (42-75); Platelet Count 274 thou/uL (130-400); Platelet Morphology Comment Appears Adequate; RBC Distribution Width 12.3 % (11.5-14.5); Red Blood Cell (RBC) Count 4.54 mill/uL (4.20-5.40); White Blood Cell (WBC) Count 19.7 thou/uL (4.8-10.8)
[2020-08-08 05:14] LABS: Potassium 2.9 mmol/L (3.5-5.1)
[2020-08-08] MEDS ORDERED: Potassium Bicarbonate/Cit Ac 20 MEQ TAB PO SCH (05:45)
[2020-08-08] MEDS: Lisinopril 20 MG TAB PO SCH (08:46)
[2020-08-08] MEDS: Acetaminophen 325 MG TAB PO PRN ×2 (08:54→21:59)
[2020-08-08] MEDS: Famotidine/PF 20 mg/2ml Vial SLOW IVP SCH ×2 (08:55→21:18)
[2020-08-08] MEDS: Amlodipine 10 MG TAB PO SCH (08:55)
[2020-08-08] MEDS: hydrALAZINE 25 MG TAB PO SCH ×2 (08:55→21:18)
[2020-08-08] MEDS: Trospium 20 MG TAB PO SCH ×2 (08:55→21:18)
[2020-08-08] MEDS: Sodium Chloride 0.9% 1,000 ML IV SCH ×2 (09:06→21:18)
--- NOTE | 2020-08-08 16:58 | PDOC.HOSPP ---
- Subjective Encounter Date: 08/08/20 Subjective: The patient's body rash and lip swelling are improving. - Objective Vital Signs & Weight: Vital Signs (12 hours) Temp Pulse BP Pulse Ox 08/08/20 16:39 98.5 F 08/08/20 12:19 98.7 F 08/08/20 08:55 102 H 147/94 H 08/08/20 08:46 147/94 H 08/08/20 08:00 98 08/08/20 07:18 99.2 F Weight Weight 190 lb Most Recent Monitor Data Heart Rate from ECG 87 NIBP 132/77 NIBP BP-Mean 95 Respiration from ECG 15 SpO2 97 I&O: 08/07/20 08/08/20 08/09/20 06:59 06:59 06:59 Intake Total 3797 7945 Output Total 8560 0966 Balance -258 -4610 Result Diagrams: 08/08/20 03:54 08/08/20 03:54 Hospitalist ROS - Medication Medications: Active Medications Generic Name Dose Route Start Last Admin Trade Name Freq PRN Reason Stop Dose Admin Acetaminophen 650 mg 08/06/20 04:03 08/08/20 08:54 Acetaminophen 325 Mg Tab PO 650 mg Q4H PRN Administration Headache/Fever or Pain Amlodipine Besylate 10 mg 08/06/20 09:00 08/08/20 08:55 Amlodipine 10 Mg Tab PO 10 mg DAILY CHRIS Administration Famotidine 20 mg 08/04/20 09:00 08/08/20 08:55 Famotidine/Pf 20 Mg/2ml Vial SLOW IVP 20 mg Q12HR CHRIS Administration Hydralazine HCl 10 mg 08/06/20 04:04 08/07/20 09:49 Hydralazine 20 Mg/Ml Vial SLOW IVP 10 mg Q4H PRN Administration SBP Greater Than 180 Hydralazine HCl 75 mg 08/07/20 21:00 08/08/20 08:55 Hydralazine 25 Mg Tab PO 75 mg BID CHRIS Administration Sodium Chloride 1,000 mls @ 75 mls/hr 08/06/20 11:56 08/08/20 09:06 Normal Saline 0.9% IV 1,000 mls .[id number] CHRIS Administration Levofloxacin 750 mg/ Device 150 mls @ 100 mls/hr 08/07/20 17:00 08/07/20 20:34 IVPB 150 mls Q24HR CHRIS Administration Isosorbide Mononitrate 30 mg 08/08/20 09:00 08/08/20 08:45 Isosorbide Mononitrate Er 30 Mg Tab PO 30 mg DAILY CHRIS Administration Lisinopril 20 mg 08/06/20 09:00 08/08/20 08:46 Lisinopril 20 Mg Tab PO 20 mg DAILY CHRIS Administration Morphine Sulfate 3 mg 08/06/20 12:03 08/08/20 08:47 Morphine 4 Mg/Ml Vial SLOW IVP 3 mg Q4H PRN Administration Severe Pain (7-10) Ondansetron HCl 4 mg 08/04/20 04:27 08/06/20 09:27 Ondansetron Pf 4 Mg/2 Ml Vial IVP 4 mg Q6H PRN Administration Nausea/Vomiting Polyethylene Glycol 17 gm 08/06/20 11:57 08/08/20 08:46 Polyethylene Glycol 3350 17 Gm Packet PO 17 gm DAILYPRN PRN Administration Constipation Trospium 20 mg 08/04/20 21:00 08/08/20 08:55 Trospium 20 Mg Tab PO 20 mg BID CHRIS Administration - Exam ENT: normocephalic atraumatic Neck: supple, no JVD Respiratory: normal chest expansion, no tachypnea Extremities: no cyanosis, no clubbing Hosp A/P (1) Sepsis Code(s): A41.9 - SEPSIS, UNSPECIFIED ORGANISM Status: Acute (2) Pyelonephritis Code(s): N12 - TUBULO-INTERSTITIAL NEPHRITIS, NOT SPCF ACUTE OR CHRONIC Status: Acute (3) Bilateral ureteral obstruction Code(s): N13.5 - CROSSING VESSEL AND STRICTURE OF URETER W/O HYDRONEPHROSIS Status: Acute (4) Anaphylactic reaction Code(s): T78.2XXA - ANAPHYLACTIC SHOCK, UNSPECIFIED, INITIAL ENCOUNTER Status: Acute - Plan Status post cystoscopy and stent placement. Patient remains septic. Urine cultures positive for Klebsiella species. Meropenem was discontinued as it seems to be the likely culprit in the patient's allergic reaction. Her allergic reaction appears to be improving. She tolerated levofloxacin. WBC count improving.
--- NOTE | 2020-08-08 22:54 | PDOC.EVN ---
Event Note - Event Note Event Note: Nursing called to report very painful skin lesions to patients lumbar region. Per photo, appears to be intertrigo. Patient says VERY painful and recently had bout shingles. Placed on contact precautions until further evaluation.
[2020-08-08] MEDS ORDERED: diphenhydrAMINE 50 MG/ML VIAL IVP SCH (23:00)
[2020-08-09 06:04] LABS: Anion Gap 13 mmol/L (10-20); BUN (Urea Nitrogen) 8 mg/dL (9.8-20.1); Calc. Creatinine Clearance 106 mL/min (70-130); Calcium 8.2 mg/dL (7.8-10.44); Carbon Dioxide 26 mmol/L (23-31); Chloride 103 mmol/L (98-107); Glucose 100 mg/dL (83-110); Potassium 3.3 mmol/L (3.5-5.1); Sodium 139 mmol/L (136-145)
[2020-08-09 06:45] LABS: Hemoglobin 12.5 g/dL (12.0-16.0); Mean Corpuscular HGB CONC 33.2 g/dL (32.0-36.0); Mean Corpuscular Hemoglobin 29.3 pg (27.0-31.0); Mean Corpuscular Volume 88.3 fL (78.0-98.0); Mean Platelet Volume 7.6 fL (7.4-10.4); Platelet Count 263 thou/uL (130-400); RBC Distribution Width 12.4 % (11.5-14.5); Red Blood Cell (RBC) Count 4.26 mill/uL (4.20-5.40); White Blood Cell (WBC) Count 14.7 thou/uL (4.8-10.8)
[2020-08-09 06:56] LABS: Band 10 % (5-11); Eosinophils 5 % (0-10); Lymphocytes 35 % (21-51); MDiff Complete? YES; Monocytes 8 % (0-10); Neutrophil 42 % (42-75)
[2020-08-09] MEDS: hydrALAZINE 25 MG TAB PO SCH ×2 (09:37→21:23)
[2020-08-09] MEDS: Famotidine/PF 20 mg/2ml Vial SLOW IVP SCH ×2 (09:37→21:23)
[2020-08-09] MEDS: Amlodipine 10 MG TAB PO SCH (09:38)
[2020-08-09] MEDS: Lisinopril 20 MG TAB PO SCH (09:38)
[2020-08-09] MEDS: Trospium 20 MG TAB PO SCH ×2 (09:39→21:23)
[2020-08-09] MEDS ORDERED: Potassium Chloride 20 MEQ TAB PO SCH (09:45)
--- NOTE | 2020-08-09 13:39 | PDOC.HOSPP ---
- Subjective Encounter Date: 08/09/20 Subjective: The patient was seen and examined. She is sitting at the side of the bed and stated that her generalized pain is better than yesterday. She is saturating well on room air. - Objective Vital Signs & Weight: Vital Signs (12 hours) Temp Pulse Resp BP BP Pulse Ox 08/09/20 11:30 98.2 F 106 H 16 151/78 H 94 L 08/09/20 09:38 92 137/81 08/09/20 09:37 92 137/81 08/09/20 08:00 93 L 08/09/20 07:37 98.4 F 92 16 137/81 93 L 08/09/20 04:01 98.4 F 99 19 143/83 H 94 L Weight Weight 190 lb Most Recent Monitor Data Heart Rate from ECG 92 NIBP 144/107 NIBP BP-Mean 119 Respiration from ECG 22 SpO2 96 I&O: 08/08/20 08/09/20 08/10/20 06:59 06:59 06:59 Intake Total 5199 1773 Output Total 7450 1825 Balance -2255 -52 Result Diagrams: 08/09/20 05:19 08/09/20 05:19 Hospitalist ROS - Medication Medications: Active Medications Generic Name Dose Route Start Last Admin Trade Name Freq PRN Reason Stop Dose Admin Acetaminophen 650 mg 08/06/20 04:03 08/08/20 21:59 Acetaminophen 325 Mg Tab PO 650 mg Q4H PRN Administration Headache/Fever or Pain Amlodipine Besylate 10 mg 08/06/20 09:00 08/09/20 09:38 Amlodipine 10 Mg Tab PO 10 mg DAILY CHRIS Administration Famotidine 20 mg 08/04/20 09:00 08/09/20 09:37 Famotidine/Pf 20 Mg/2ml Vial SLOW IVP 20 mg Q12HR CHRIS Administration Hydralazine HCl 10 mg 08/06/20 04:04 08/07/20 09:49 Hydralazine 20 Mg/Ml Vial SLOW IVP 10 mg Q4H PRN Administration SBP Greater Than 180 Hydralazine HCl 75 mg 08/07/20 21:00 08/09/20 09:37 Hydralazine 25 Mg Tab PO 75 mg BID CHRIS Administration Sodium Chloride 1,000 mls @ 75 mls/hr 08/06/20 11:56 08/08/20 21:18 Normal Saline 0.9% IV 1,000 mls .[id number] CHRIS Administration Levofloxacin 750 mg/ Device 150 mls @ 100 mls/hr 08/07/20 17:00 08/08/20 17:48 IVPB 150 mls Q24HR CHRIS Administration Isosorbide Mononitrate 30 mg 08/08/20 09:00 08/09/20 09:38 Isosorbide Mononitrate Er 30 Mg Tab PO 30 mg DAILY CHRIS Administration Lisinopril 20 mg 08/06/20 09:00 08/09/20 09:38 Lisinopril 20 Mg Tab PO 20 mg DAILY CHRIS Administration Morphine Sulfate 3 mg 08/06/20 12:03 08/08/20 21:55 Morphine 4 Mg/Ml Vial SLOW IVP 3 mg Q4H PRN Administration Severe Pain (7-10) Ondansetron HCl 4 mg 08/04/20 04:27 08/06/20 09:27 Ondansetron Pf 4 Mg/2 Ml Vial IVP 4 mg Q6H PRN Administration Nausea/Vomiting Polyethylene Glycol 17 gm 08/06/20 11:57 08/08/20 08:46 Polyethylene Glycol 3350 17 Gm Packet PO 17 gm DAILYPRN PRN Administration Constipation Trospium 20 mg 08/04/20 21:00 08/09/20 09:39 Trospium 20 Mg Tab PO 20 mg BID CHRIS Administration - Exam General Appearance: awake alert Neck: supple, no JVD Heart: RRR Respiratory: normal chest expansion, no tachypnea Extremities: no cyanosis, no clubbing Neurological: cranial nerve grossly intact Hosp A/P (1) Sepsis Code(s): A41.9 - SEPSIS, UNSPECIFIED ORGANISM Status: Acute (2) Pyelonephritis Code(s): N12 - TUBULO-INTERSTITIAL NEPHRITIS, NOT SPCF ACUTE OR CHRONIC Status: Acute (3) Bilateral ureteral obstruction Code(s): N13.5 - CROSSING VESSEL AND STRICTURE OF URETER W/O HYDRONEPHROSIS Status: Acute (4) Anaphylactic reaction Code(s): T78.2XXA - ANAPHYLACTIC SHOCK, UNSPECIFIED, INITIAL ENCOUNTER Status: Acute - Plan Status post cystoscopy and stent placement. Urine cultures positive for Klebsiella species. The patient was managed initially with meropenem but she developed an allergic reaction and the medication was changed to levofloxacin. Sepsis is improving. Her leukocytosis continues to improve, we will plan to discharge her tomorrow.
[2020-08-09] MEDS: Sodium Chloride 0.9% 1,000 ML IV SCH (18:31)
[2020-08-09] MEDS: Morphine 4 MG/ML VIAL SLOW IVP PRN (21:24)
[2020-08-09] MEDS: Acetaminophen 325 MG TAB PO PRN (23:50)
[2020-08-10] MEDS: Sodium Chloride 0.9% 1,000 ML IV SCH ×2 (01:01→16:16)
[2020-08-10 05:47] LABS: Anion Gap 15 mmol/L (10-20); BUN (Urea Nitrogen) 7 mg/dL (9.8-20.1); Calc. Creatinine Clearance 106 mL/min (70-130); Carbon Dioxide 22 mmol/L (23-31); Chloride 105 mmol/L (98-107); Glucose 96 mg/dL (83-110); Potassium 3.7 mmol/L (3.5-5.1); Sodium 138 mmol/L (136-145)
[2020-08-10 05:48] LABS: Calcium 8.3 mg/dL (7.8-10.44)
[2020-08-10 05:53] LABS: Hemoglobin 12.4 g/dL (12.0-16.0); Mean Corpuscular HGB CONC 33.6 g/dL (32.0-36.0); Mean Corpuscular Hemoglobin 29.6 pg (27.0-31.0); Mean Corpuscular Volume 88.1 fL (78.0-98.0); Mean Platelet Volume 8.4 fL (7.4-10.4); Platelet Count 286 thou/uL (130-400); Red Blood Cell (RBC) Count 4.18 mill/uL (4.20-5.40)
[2020-08-10 06:10] LABS: Band 8 % (5-11); Eosinophils 3 % (0-10); Lymphocytes 37 % (21-51); MDiff Complete? YES; Monocytes 7 % (0-10); Myelocyte 2 % (0-0); Neutrophil 41 % (42-75); Reactive Lymphocytes 2 % (0-10)
[2020-08-10] MEDS: Famotidine/PF 20 mg/2ml Vial SLOW IVP SCH (08:13)
[2020-08-10] MEDS: Amlodipine 10 MG TAB PO SCH (08:14)
[2020-08-10] MEDS: hydrALAZINE 25 MG TAB PO SCH ×2 (11:15→13:58)
--- NOTE | 2020-08-10 13:27 | PDOC.DS.DS ---
Provider - Provider Date of Admission: 08/04/20 04:53 Date of Discharge: 08/10/20 Admitting Provider: Phyllis Dooley MD Primary Care Physician: Chetan Basilio MD Course - Hospital Course Hospital Course: The patient is a 70-year-old female with past medical history of hypertension and recurrent urinary tract infections who presented to the hospital with UTI and sepsis. CT scan of the abdomen revealed an obstructing stone in the left ureteropelvic junction. The patient was placed on broad-spectrum antibiotics and underwent cystoscopy with stent placement. Urine culture revealed growth of Klebsiella species sensitive to fluoroquinolones. The patient's antibiotic switched to levofloxacin and her condition continued to improve. At this time, she is clinically stable and will be discharged on a course of levofloxacin. Outpatient follow-up with urology has been recommended in 1 to 2 weeks. Resuscitation Status: 08/04/20 04:27 Resuscitation Status Routine Resuscitation Status: FULL: Full Resuscitation - Labs Lab Results: 08/10/20 05:13 08/10/20 05:13 Abnormal Lab Results - Last 48 hrs 08/09/20 05:19: Potassium 3.3 L, BUN 8 L 08/09/20 05:19: WBC 14.7 H 08/10/20 05:13: Carbon Dioxide 22 L, BUN 7 L 08/10/20 05:13: WBC 15.0 H, RBC 4.18 L, Neutrophils % (Manual) 41 L, Myelocytes % 2 H Microbiology - Entire Visit 08/04/20 09:57 Venous blood - Left Hand Blood Culture - Final NO GROWTH IN 5 DAYS 08/04/20 10:03 Venous blood - Right Hand Blood Culture - Final NO GROWTH IN 5 DAYS 08/04/20 00:40 Urine gomez catheter Urine Culture - Final NO GROWTH AT 48 HOURS 08/04/20 18:54 Renal Pelvis - Left Urine Culture - Final NO GROWTH AT 36 HOURS 08/06/20 11:35 Nasopharynx - Swab Influenza Types A,B Direct EIA - Final - Physical Exam Vitals: Vital Signs (12 hours) Temp Pulse Resp BP BP Pulse Ox 08/10/20 11:23 98.3 F 93 18 130/79 96 08/10/20 11:15 78 08/10/20 08:14 78 08/10/20 07:26 98 F 98 18 126/63 94 L 08/10/20 03:18 98.6 F 83 16 146/80 H 93 L Weight Weight 190 lb Most Recent Monitor Data Heart Rate from ECG 92 NIBP 144/107 NIBP BP-Mean 119 Respiration from ECG 22 SpO2 96 Physical Exam: The patient was seen and examined on the day of discharge. Problem - Problem (1) Sepsis Code(s): A41.9 - SEPSIS, UNSPECIFIED ORGANISM Status: Acute (2) Pyelonephritis Code(s): N12 - TUBULO-INTERSTITIAL NEPHRITIS, NOT SPCF ACUTE OR CHRONIC Status: Acute (3) Bilateral ureteral obstruction Code(s): N13.5 - CROSSING VESSEL AND STRICTURE OF URETER W/O HYDRONEPHROSIS Status: Acute (4) Anaphylactic reaction Code(s): T78.2XXA - ANAPHYLACTIC SHOCK, UNSPECIFIED, INITIAL ENCOUNTER Status: Acute Plan - Discharge Medications Prescriptions: Levofloxacin 750 mg PO DAILY #7 tablet Amlodipine [Norvasc] 10 mg PO DAILY #30 tab Home Medications: Medication Instructions Recorded Confirmed Type Lisinopril 40 mg PO HS 09/18/14 08/04/20 History Sertraline HCl [Zoloft] 50 mg PO DAILY 09/18/14 08/04/20 History Triamcinolone Acetonide [Nasacort 1 spray EA NARE ASDIR PRN 09/18/14 08/04/20 History Allergy 24 HR] Cyanocobalamin (Vitamin B-12) 500 mcg PO DAILY 12/08/18 08/04/20 History [Vitamin B-12] Lovastatin [Mevacor] 20 mg PO HS 12/08/18 08/04/20 History Multivitamin/Iron/Folic Acid 1 tab PO DAILY 12/08/18 08/04/20 History [Centrum Adults Tablet] Turmeric Root Extract [Turmeric 500 mg PO DAILY 12/08/18 08/04/20 History Curcumin] diphenhydrAMINE [Benadryl] 25 mg PO Q6HR PRN 12/08/18 08/04/20 History Acetaminophen [Tylenol Extra 1,000 mg PO Q6H PRN tab 12/15/18 08/04/20 Rx Strength] Amlodipine [Norvasc] 10 mg PO DAILY #30 tab 08/10/20 Rx Levofloxacin 750 mg PO DAILY #7 tablet 08/10/20 Rx Allergies: Sulfa (Sulfonamide Antibiotics) Allergy (Intermediate, Verified 08/04/20 06:52) ITCHING buspirone HCl [From BuSpar] Allergy (Verified 08/04/20 06:52) Rash meropenem [From Merrem] Allergy (Verified 08/08/20 11:26) Swollen Lips DISCOVERED ON 08/07/20 Penicillins Allergy (Verified 08/04/20 06:52) Rash - Follow up Plan Referrals: Chetan Basilio MD [Primary Care Provider] - Disposition: HOME Quality - Care Measures CORE MEASURES:: N/A
[2020-08-10] MEDS: Lisinopril 20 MG TAB PO SCH (13:57)
[2020-08-10] MEDS: Trospium 20 MG TAB PO SCH (13:58)
[2020-08-10 16:14] VITALS: BP 114/66; TEMP 97.9
== END 2020-08-10 17:01 | disposition home or self-care (01) | DRG 853 ==
LOC: ERS 03:43 → SURG A 04:53 → IMCU/EMU 13:11 → SJJU 08-08 20:05
PROVIDERS: ADMIT Internal Medicine; ATTEND Internal Medicine
PROC: 0T778DZ Dilation of Left Ureter with Intraluminal Device, Via Natural or Artificial Opening Endoscopic (ICD-10-PCS; principal; 2020-08-04)
DX: A41.9 Sepsis, unspecified organism (principal); R65.21 Severe sepsis with septic shock; T78.2XXA Anaphylactic shock, unspecified, initial encounter; Z16.23 Resistance to quinolones and fluoroquinolones; N13.6 Pyonephrosis; I10 Essential (primary) hypertension; E78.00 Pure hypercholesterolemia, unspecified; G89.29 Other chronic pain; M54.9 Dorsalgia, unspecified; M19.90 Unspecified osteoarthritis, unspecified site; B96.1 Klebsiella pneumoniae [K. pneumoniae] as the cause of diseases classified elsewhere; E78.5 Hyperlipidemia, unspecified; E66.01 Morbid (severe) obesity due to excess calories; Z88.0 Allergy status to penicillin; Z88.1 Allergy status to other antibiotic agents; Z88.2 Allergy status to sulfonamides; Z88.8 Allergy status to other drugs, medicaments and biological substances; Z88.6 Allergy status to analgesic agent; Z90.49 Acquired absence of other specified parts of digestive tract; Z79.899 Other long term (current) drug therapy; Z68.37 Body mass index [BMI] 37.0-37.9, adult
CPT/HCPCS: 0240U; 36415; 36416; 71045; 74420; 80048; 80202; 82553; 83880; 84484; 85025; 87086; 87804; 93005; 93010; J0360; J1200; J1956; J2185; J2270; J2405; J2704; J3010; J3370; J3490; J7050; S0028

== ENCOUNTER 2021-10-23 11:53 | Outpatient (CLI) | payer MEDICARE ==
[2021-10-23 13:28] LABS: #Basophils 0.1 10x3/uL (0.0-0.2); #Eosinphils 0.3 10x3/uL (0.0-0.5); #Monocytes 0.9 10x3/uL (0.0-1.1); #Neutrophils 5.4 10x3/uL (1.5-8.4); %Basophils 0.8 % (0.0-2.0); %Eosinophils 3.1 % (0.0-6.0); %Lymphocytes 25.6 % (18.0-47.0); %Monocytes 9.7 % (0.0-10.0); %Neutrophils 60.6 % (40.0-75.0); Hemoglobin 11.3 g/dL (12.0-15.5); Mean Corpuscular HGB CONC 31.7 g/dL (32.0-36.0); Mean Corpuscular Hemoglobin 27.8 pg (27.0-33.0); Mean Corpuscular Volume 87.5 fl (81.6-98.3); Mean Platelet Volume 10.8 fl (7.4-10.4); Platelet Count 326 10x3/uL (150-450); RBC Distribution Width 14.5 % (11.5-14.5); Red Blood Cell (RBC) Count 4.07 10x6/uL (3.90-5.03); White Blood Cell (WBC) Count 8.9 10x3/uL (3.5-10.5)
[2021-10-23 13:48] LABS: Anion Gap 14 mmol/L (10-20); BUN (Urea Nitrogen) 20 mg/dL (9.8-20.1); Calc. Creatinine Clearance 0 mL/min (70-130); Calcium 8.6 mg/dL (7.8-10.44); Carbon Dioxide 25 mmol/L (23-31); Chloride 104 mmol/L (98-107); Glucose 111 mg/dL (83-110); Potassium 3.4 mmol/L (3.5-5.1); Sodium 140 mmol/L (136-145)
[2021-10-23 23:53] LABS: SARS-CoV-2 PCR by NAA Not Detected (NotDetected)
== END 2021-10-23 11:54 | disposition home or self-care (01) ==
LOC: LABBT 11:53
PROVIDERS: ATTEND Orthopaedic Surgery
DX: Z01.818 Encounter for other preprocedural examination (principal); M16.12 Unilateral primary osteoarthritis, left hip; Z20.822 Contact with and (suspected) exposure to COVID-19
CPT/HCPCS: 80048; 85025; 85610; 87081; 93005; U0003; U0005; 93010

== ENCOUNTER 2024-12-14 06:14 | Day surgery (SDC) | payer MEDICARE ==
[2024-12-13 08:29] VITALS: BMI 44.9
[2024-12-14] MEDS ORDERED: PROPOFOL 40 ML ONE (07:26)
[2024-12-14] MEDS ORDERED: GLYCOPYRROLATE/PF 0.2 MG/ML VIAL ONE (07:28)
[2024-12-14] MEDS ORDERED: Lidocaine 1% PF 5 ML VIAL ONE (07:28)
[2024-12-14] MEDS ORDERED: Labetalol HCl 100 MG/20 ML VIAL ONE (08:28)
== END 2024-12-14 09:22 | disposition home or self-care (01) ==
LOC: SDC 06:14
PROVIDERS: ATTEND Internal Medicine Gastroenterology
PROC: 0DB38ZX Excision of Lower Esophagus, Via Natural or Artificial Opening Endoscopic, Diagnostic (ICD-10-PCS; principal; 2024-12-14)
DX: K22.70 Barrett's esophagus without dysplasia (principal); K44.9 Diaphragmatic hernia without obstruction or gangrene; K21.9 Gastro-esophageal reflux disease without esophagitis; I10 Essential (primary) hypertension; E78.00 Pure hypercholesterolemia, unspecified; F41.9 Anxiety disorder, unspecified; G47.30 Sleep apnea, unspecified; Z98.84 Bariatric surgery status; Z87.891 Personal history of nicotine dependence; Z90.49 Acquired absence of other specified parts of digestive tract; Z88.1 Allergy status to other antibiotic agents; Z88.0 Allergy status to penicillin; Z88.2 Allergy status to sulfonamides; Z88.8 Allergy status to other drugs, medicaments and biological substances; Z79.899 Other long term (current) drug therapy
CPT/HCPCS: 43239; J2704; J3490; 88305